=== PATIENT | female | born 1935 | race African-American/Black ===

== ENCOUNTER 2018-10-30 10:36 | Emergency (ER) | payer BC, OTHER ==
[2018-10-30 10:59] VITALS: BP 131/60; PULSE 97; TEMP 98.4; BMI 25.9
[2018-10-30] MEDS ORDERED: IBUPROFEN 600 MG TABLET (FP) PO ONE ×2 (12:08→12:10)
--- NOTE | 2018-10-30 12:12 | PDOC ---
History of Present Illness - General Chief Complaint: Ear Problem Stated Complaint: LT ARM PAIN Time Seen by Provider: 10/30/18 11:43 History Source: Patient Exam Limitations: No Limitations - History of Present Illness Initial Comments: 10/30/18 18:45 Pt is an 83 y/o F with PMH of HTN who presents to the ED with L ear pain and L arm pain. Pt states that when she touches her L ear, she experiences pain. Denies sore throat and hearing changes. She also states that it hurts to flex her L arm and that she has pain in the bicep. Denies trauma or falling. Past History - Travel Traveled outside of the country in the last 30 days: No Close contact w/someone who was outside of country & ill: No - Past Medical History Allergies/Adverse Reactions: Allergies Allergy/AdvReac Type Severity Reaction Status Date / Time No Known Allergies Allergy Verified 10/30/18 10:55 Home Medications: Ambulatory Orders Ciprofloxacin HCl/Dexameth [Ciprodex Otic Suspension] 4 drop BID #1 bottle Ibuprofen 600 mg PO Q8H #30 tablet 10/30/18 Lidocaine 4% Topical [Xylocaine 4% Topical -] 1 applic MM BID #1 btl 10/30/18 COPD: No HTN: Yes - Suicide/Smoking/Psychosocial Hx Smoking History: Never smoked Hx Alcohol Use: No Drug/Substance Use Hx: No Review of Systems - Review of Systems Able to Perform ROS?: Yes Comments:: 10/30/18 12:09 CONSTITUTIONAL: Absent: fever, chills, diaphoresis, generalized weakness, malaise, loss of appetite HEENT: Present: L ear pain Absent: rhinorrhea, nasal congestion, throat pain, throat swelling, difficulty swallowing, mouth swelling, eye pain, visual Changes CARDIOVASCULAR: Absent: chest pain, loss of consciousness, palpitations, irregular heart rate, peripheral edema RESPIRATORY: Absent: cough, shortness of breath, dyspnea with exertion, orthopnea, wheezing, stridor, hemoptysis GASTROINTESTINAL: Absent: abdominal pain, abdominal distension, nausea, vomiting, diarrhea, constipation, melena, hematochezia GENITOURINARY: Absent: dysuria, frequency, urgency, hesitancy, hematuria, flank pain, genital pain MUSCULOSKELETAL: Present: L arm pain Absent: myalgia, arthralgia, joint swelling SKIN: Absent: rash, itching, pallor HEMATOLOGIC/IMMUNOLOGIC: Absent: easy bleeding, easy bruising, lymphadenopathy, frequent infections ENDOCRINE: Absent: unexplained weight gain, unexplained weight loss, heat intolerance, cold intolerance NEUROLOGIC: Absent: headache, focal weakness or paresthesias, dizziness, unsteady gait, seizure, mental status changes, bladder or bowel incontinence PSYCHIATRIC: Absent: anxiety, depression, suicidal or homicidal ideation, hallucinations. Is the patient limited [place]ian proficient: No *Physical Exam - Vital Signs Last Vital Signs Temp Pulse Resp BP Pulse Ox 98.4 F 97 H 16 131/60 99 10/30/18 10:57 10/30/18 10:57 10/30/18 10:57 10/30/18 10:57 10/30/18 10:57 - Physical Exam Comments: 10/30/18 12:09 GENERAL: Well developed, well nourished. Awake and alert. No acute distress. HEENT: Normocephalic, atraumatic. PERRLA, EOMI. No conjunctival pallor. Sclera are non- icteric. Moist mucous membranes. Oropharynx is clear. TTP of the L tragus with swelling to the L ear canal. L TM is normal. No TTP of the mastoid bone. R TM is normal MUSCULOSKELETAL TTP of the L bicep and L bicep insertion at the shoulder. (+) speeds test. Normal range of motion at all joints. No bony deformities or tenderness. No CVA tenderness. EXTREMITIES: No cyanosis. No clubbing. No edema. No calf tenderness. SKIN: Warm and dry. Normal capillary refill. No rashes. No jaundice. NEUROLOGICAL: Alert, awake, appropriate. Cranial nerves 2-12 intact. No deficits to light touch and temperature in face, upper extremities and lower extremities. No motor deficits in the in face, upper extremities and lower extremities. Normoreflexic in the upper and lower extremities. Normal speech. Toes are down- going bilaterally. Gait is normal without ataxia. PSYCHIATRIC: Cooperative. Good eye contact. Appropriate mood and affect. Moderate Sedation - Procedure Monitoring Vital Signs: Procedure Monitoring Vital Signs Temperature 98.4 F 10/30/18 10:57 Pulse Rate 97 H 10/30/18 10:57 Respiratory Rate 16 10/30/18 10:57 Blood Pressure 131/60 10/30/18 10:57 O2 Sat by Pulse Oximetry (%) 99 10/30/18 10:57 Medical Decision Making - Medical Decision Making 10/30/18 18:48 Pt presents to the ED for L arm pain and L ear pain for 2-3 days -Exam consistent with L otitis externa. TM visualized with no evidence of AOM -L arm exam consistent with biceps tendonitis -Will treat with antibiotics for the AOE and sympomatically for the biceps tendonitis -DC home with ortho follow up -I discussed the physical exam findings, ancillary test results and final diagnoses with the patient. I answered all of the patient's questions. The patient was satisfied with the care received and felt comfortable with the discharge plan and treatment plan. The Patient agrees to follow up with the primary care physician/specialist within 24-72 hours. Return precautions were given. *DC/Admit/Observation/Transfer Diagnosis at time of Disposition: Biceps tendinitis of left shoulder Otitis externa Qualifiers: Otitis externa type: unspecified type Chronicity: acute Laterality: left Qualified Code(s): H60.502 - Unspecified acute noninfective otitis externa, left ear - Discharge Dispostion Disposition: HOME Condition at time of disposition: Stable Decision to Admit order: No - Prescriptions Prescriptions: Ciprofloxacin HCl/Dexameth [Ciprodex Otic Suspension] 4 drop BID #1 bottle Ibuprofen 600 mg PO Q8H #30 tablet Lidocaine 4% Topical [Xylocaine 4% Topical -] 1 applic MM BID #1 btl - Referrals Referrals: Pritesh Lizama [Primary Care Provider] - Capo Boland MD [Staff Physician] - - Patient Instructions Printed Discharge Instructions: DI for Otitis Externa, DI for Shoulder Tendinopathy Additional Instructions: You have otitis externa. This is an infection of the ear canal. Please use the eardrops once a day as directed for the next 10 days to the affected ear. Do not put anything in the ear, including q-tips. Keep the ear dry. Do not go swimming for the next 2 weeks. Pat the ear dry with a towel after showering. Follow up with ENT if your symptoms are not improving in 7-10 days You also have biceps tendonitis in your L arm. Take the ibuprofen 600mg every 8 hours for one week. Use the lidocaine cream on the arm twice a day Follow up with your primary care doctor this week Return to the ED if you have worsening pain, fevers, dizziness or if you have any changes in your symptoms. - Post Discharge Activity
== END 2018-10-30 12:14 | disposition home or self-care (01) ==
LOC: JERFT 10:36
DX: H60.502 Unspecified acute noninfective otitis externa, left ear (principal); M75.22 Bicipital tendinitis, left shoulder; I10 Essential (primary) hypertension
CPT/HCPCS: 99281-25

== ENCOUNTER 2020-12-20 09:43 | Inpatient (IN) | payer BC, OTHER ==
[2020-12-20 09:50] VITALS: BMI 25.6
[2020-12-20 11:06] LABS: BASO % 0.5 % (0-2.0); EOS % 1.3 % (0-4.5); HEMATOCRIT 39.3 % (32.4-45.2); LYMPH % 49.7 % (8-40); MCH 32.3 pg (25.7-33.7); MCHC 33.1 g/dl (32.0-36.0); MEAN CELL VOLUME 97.6 fl (80-96); MEAN PLT VOLUME 9.2 fl (7.5-11.1); MONO % 5.9 % (3.8-10.2); NEUT % 42.6 % (42.8-82.8); PLATELET COUNT 141 K/MM3 (134-434); RBC 4.03 M/mm3 (3.60-5.2); RDW 13.1 % (11.6-15.6); WHITE BLOOD COUNT 4.7 K/mm3 (4.0-10.0)
[2020-12-20 11:23] LABS: CHLORIDE 105 mmol/L (98-107); SODIUM 139 mmol/L (136-145)
[2020-12-20 11:26] LABS: CALCIUM 9.5 mg/dL (8.5-10.1)
[2020-12-20 11:27] LABS: ANION GAP 3 MMOL/L (8-16); BLOOD UREA NITROGEN 18.4 mg/dL (7-18); CO2 31 mmol/L (21-32); MAGNESIUM 2.2 mg/dL (1.8-2.4)
[2020-12-20 11:29] LABS: GLUCOSE,RANDOM 96 mg/dL (74-106)
[2020-12-20 11:30] LABS: CREATININE 1.1 mg/dL (0.55-1.3); PHOSPHOROUS 3.2 mg/dL (2.5-4.9); SGOT/AST 14 U/L (15-37); SGPT/ALT 18 U/L (13-61)
[2020-12-20 11:32] LABS: BILIRUBIN,TOTAL 0.4 mg/dL (0.2-1); TOT PROT 7.8 g/dl (6.4-8.2)
[2020-12-20 11:33] LABS: ALK PHOS 82 U/L (45-117)
[2020-12-20] MEDS ORDERED: ONDANSETRON 4 MG/2 ML VIAL IVPUSH PRN (19:25)
[2020-12-20] MEDS ORDERED: ACETAMINOPHEN 325 MG TABLET (FP) PO PRN (19:25)
[2020-12-20] MEDS ORDERED: HEPARIN NA (PORCINE) 5,000 UNITS/ML 1ML VIAL ONE (20:52)
[2020-12-20] MEDS: HEPARIN NA (PORCINE) 5,000 UNITS/ML 1ML VIAL SQ SCH (20:59)
[2020-12-21 07:43] LABS: HEMATOCRIT 36.3 % (32.4-45.2); HEMOGLOBIN 12.4 GM/dL (10.7-15.3); MCH 33.3 pg (25.7-33.7); MCHC 34.2 g/dl (32.0-36.0); MEAN CELL VOLUME 97.3 fl (80-96); MEAN PLT VOLUME 8.9 fl (7.5-11.1); PLATELET COUNT 132 K/MM3 (134-434); RBC 3.73 M/mm3 (3.60-5.2); WHITE BLOOD COUNT 4.9 K/mm3 (4.0-10.0)
[2020-12-21 08:04] LABS: BLOOD UREA NITROGEN 14.4 mg/dL (7-18); CALCIUM 9.2 mg/dL (8.5-10.1)
[2020-12-21 08:06] LABS: CREATININE 1.1 mg/dL (0.55-1.3)
[2020-12-21] MEDS ORDERED: HEPARIN NA (PORCINE) 5,000 UNITS/ML 1ML VIAL ONE (09:21)
[2020-12-21] MEDS ORDERED: PT OWN MED DRAWER 7, Y5N ONE (09:21)
[2020-12-21] MEDS: HEPARIN NA (PORCINE) 5,000 UNITS/ML 1ML VIAL SQ SCH ×2 (09:26→23:15)
[2020-12-22 09:19] LABS: BASO % 0.9 % (0-2.0); EOS % 1.6 % (0-4.5); HEMATOCRIT 35.2 % (32.4-45.2); HEMOGLOBIN 11.9 GM/dL (10.7-15.3); LYMPH % 56.4 % (8-40); MCH 32.8 pg (25.7-33.7); MCHC 33.8 g/dl (32.0-36.0); MEAN PLT VOLUME 9.4 fl (7.5-11.1); MONO % 7.1 % (3.8-10.2); PLATELET COUNT 127 K/MM3 (134-434); RBC 3.63 M/mm3 (3.60-5.2); RDW 12.7 % (11.6-15.6); WHITE BLOOD COUNT 5.1 K/mm3 (4.0-10.0)
[2020-12-22 10:01] LABS: ALBUMIN 3.3 g/dl (3.4-5.0); BLOOD UREA NITROGEN 21.7 mg/dL (7-18)
[2020-12-22 10:04] LABS: CREATININE 1.1 mg/dL (0.55-1.3)
[2020-12-22 10:05] LABS: BILIRUBIN,TOTAL 0.8 mg/dL (0.2-1); TOT PROT 6.7 g/dl (6.4-8.2)
[2020-12-22] MEDS: HEPARIN NA (PORCINE) 5,000 UNITS/ML 1ML VIAL SQ SCH (10:12)
[2020-12-22] MEDS ORDERED: ASPIRIN COATED 81 MG TABLET.EC PO SCH (13:45)
[2020-12-22 14:51] VITALS: BP 125/98; PULSE 76; TEMP 98
[2020-12-22] MEDS ORDERED: ATORVASTATIN CA 10 MG TABLET (FP) PO SCH (22:00)
[2020-12-23] MEDS ORDERED: amLODIPine BESYLATE 5 MG TABLET (FP) PO SCH (10:00)
[2020-12-23] MEDS ORDERED: HYDROCHLOROTHIAZIDE 25 MG TABLET (FP) PO SCH (10:00)
== END 2020-12-22 17:30 | disposition home or self-care (01) | DRG 312 ==
LOC: JERFT 09:43 → JERBED 13:32 → OBSVTOIN 19:25 → J6WEST-2 12-21 22:55
PROVIDERS: ADMIT Internal Medicine; ATTEND Student in an Organized Health Care Education/Training Program
DX: R55 Syncope and collapse (principal); S22.31XA Fracture of one rib, right side, initial encounter for closed fracture; I10 Essential (primary) hypertension; E78.5 Hyperlipidemia, unspecified; W19.XXXA Unspecified fall, initial encounter; Y93.H2 Activity, gardening and landscaping; Y92.89 Other specified places as the place of occurrence of the external cause; Y99.8 Other external cause status
CPT/HCPCS: 36415; 70450-TC; 70486-TC; 71250-TC; 80048; 80053; 80061; 82550; 82607; 82747; 82962; 83036; 83721; 83735; 83880; 84100; 84443; 84484; 85014; 85025; 85027; 86593; 86780; 93005; 93010; 93306-TC; 93880-TC; 99285-25; C9803; G0378; J1644; U0003; U0005

== ENCOUNTER 2020-12-29 12:13 | Observation (INO) | payer BC ==
[2020-12-29 12:23] VITALS: BMI 25.6
[2020-12-29 14:38] LABS: BASO % 0.4 % (0-2.0); EOS % 0.4 % (0-4.5); HEMATOCRIT 37.6 % (32.4-45.2); HEMOGLOBIN 12.7 GM/dL (10.7-15.3); LYMPH % 22.1 % (8-40); MCH 32.6 pg (25.7-33.7); MCHC 33.7 g/dl (32.0-36.0); MEAN CELL VOLUME 96.8 fl (80-96); MEAN PLT VOLUME 8.9 fl (7.5-11.1); MONO % 4.7 % (3.8-10.2); NEUT % 72.4 % (42.8-82.8); PLATELET COUNT 126 K/MM3 (134-434); RBC 3.88 M/mm3 (3.60-5.2); WHITE BLOOD COUNT 6.2 K/mm3 (4.0-10.0)
[2020-12-29 15:05] LABS: CHLORIDE 101 mmol/L (98-107); SODIUM 139 mmol/L (136-145)
[2020-12-29 15:08] LABS: CALCIUM 9.8 mg/dL (8.5-10.1)
[2020-12-29 15:09] LABS: ALBUMIN 3.9 g/dl (3.4-5.0); ANION GAP 5 MMOL/L (8-16); BLOOD UREA NITROGEN 19.3 mg/dL (7-18); CO2 32 mmol/L (21-32); GLUCOSE,RANDOM 123 mg/dL (74-106); MAGNESIUM 2.3 mg/dL (1.8-2.4)
[2020-12-29 15:12] LABS: CREATININE 1.4 mg/dL (0.55-1.3); SGOT/AST 23 U/L (15-37); SGPT/ALT 25 U/L (13-61)
[2020-12-29 15:13] LABS: BILIRUBIN,TOTAL 0.6 mg/dL (0.2-1); TOT PROT 7.7 g/dl (6.4-8.2)
[2020-12-29 15:15] LABS: ALK PHOS 86 U/L (45-117)
[2020-12-29] MEDS ORDERED: LACTATED RINGERS SOLUTION 1000 ML INFUS.BAG IV ONE (16:36)
[2020-12-29] MEDS ORDERED: ONDANSETRON 4 MG/2 ML VIAL IVPUSH ONE (16:41)
[2020-12-29] MEDS ORDERED: SODIUM CHLORIDE 1,000 ML IV SCH (22:30)
[2020-12-30 08:07] LABS: BASO % 0.5 % (0-2.0); EOS % 1.4 % (0-4.5); HEMATOCRIT 33.7 % (32.4-45.2); HEMOGLOBIN 11.2 GM/dL (10.7-15.3); LYMPH % 45.5 % (8-40); MCH 32.3 pg (25.7-33.7); MCHC 33.3 g/dl (32.0-36.0); MEAN CELL VOLUME 97.2 fl (80-96); MEAN PLT VOLUME 9.3 fl (7.5-11.1); MONO % 6.6 % (3.8-10.2); PLATELET COUNT 122 K/MM3 (134-434); RBC 3.47 M/mm3 (3.60-5.2); RDW 13.1 % (11.6-15.6)
[2020-12-30 08:30] LABS: BLOOD UREA NITROGEN 18.4 mg/dL (7-18); CALCIUM 9.4 mg/dL (8.5-10.1); MAGNESIUM 2.2 mg/dL (1.8-2.4)
[2020-12-30 08:33] LABS: CREATININE 1.1 mg/dL (0.55-1.3)
[2020-12-30 08:35] LABS: BILIRUBIN,TOTAL 0.4 mg/dL (0.2-1); PHOSPHOROUS 3.4 mg/dL (2.5-4.9); TOT PROT 6.4 g/dl (6.4-8.2)
[2020-12-30 08:47] LABS: ALBUMIN 3.1 g/dl (3.4-5.0)
[2020-12-30] MEDS: amLODIPine BESYLATE 5 MG TABLET (FP) PO SCH (09:20)
[2020-12-30] MEDS: ENOXAPARIN NA (PORCINE) 40 MG/0.4 ML DISP.SYRIN SQ SCH (09:21)
[2020-12-30] MEDS ORDERED: ACETAMINOPHEN 325 MG TABLET (FP) PO PRN (15:06)
[2020-12-30 19:18] LABS: EPI CELLS 2 /uL (0-25.1); HYALINE CASTS 0 /uL (0-3.1); PH,URINE 7.5 (5.0-8.0); URINE APPEARANCE CLEAR; URINE BACTERIA 13 /uL (0-1359); URINE BILIRUBIN NEGATIVE (NEGATIVE); URINE COLOR YELLOW; URINE GLUCOSE (UA) NEGATIVE (NEGATIVE); URINE KETONE NEGATIVE (NEGATIVE); URINE LEUK ESTERASE TRACE (NEGATIVE); URINE NITRITE NEGATIVE (NEGATIVE); URINE PROTEIN NEGATIVE (NEGATIVE); URINE RBC 10 /uL (0-23.9); URINE UROBILINOGEN 0.2 mg/dL (0.2-1.0); URINE WBC 6 /uL (0-25.8)
[2020-12-30] MEDS ORDERED: ATORVASTATIN CA 10 MG TABLET (FP) PO SCH (22:00)
[2020-12-31 07:26] LABS: HEMATOCRIT 32.9 % (32.4-45.2); HEMOGLOBIN 11.1 GM/dL (10.7-15.3); MCH 32.8 pg (25.7-33.7); MCHC 33.7 g/dl (32.0-36.0); MEAN CELL VOLUME 97.4 fl (80-96); PLATELET COUNT 108 K/MM3 (134-434); RBC 3.37 M/mm3 (3.60-5.2); WHITE BLOOD COUNT 4.9 K/mm3 (4.0-10.0)
[2020-12-31 07:56] LABS: CALCIUM 8.4 mg/dL (8.5-10.1)
[2020-12-31 07:57] LABS: BLOOD UREA NITROGEN 18.7 mg/dL (7-18); MAGNESIUM 1.9 mg/dL (1.8-2.4)
[2020-12-31 07:59] LABS: PHOSPHOROUS 3.3 mg/dL (2.5-4.9)
[2020-12-31] MEDS: amLODIPine BESYLATE 5 MG TABLET (FP) PO SCH (09:30)
[2020-12-31] MEDS: ENOXAPARIN NA (PORCINE) 40 MG/0.4 ML DISP.SYRIN SQ SCH (09:30)
[2020-12-31] MEDS ORDERED: FAMOTIDINE 20 MG TABLET PO ONE (09:33)
[2020-12-31 14:21] VITALS: BP 130/56; PULSE 66; TEMP 98
== END 2020-12-31 16:30 | disposition home or self-care (01) ==
LOC: JER 12:13 → JERBED 18:16 → UNDOADMOB 18:16 → J4S 21:28 → JERBED 21:28 → INTOOBSV 22:22 → OBSVTOIN 22:22 → J4S 23:11 → JERBED 12-30 13:58
PROVIDERS: ADMIT Internal Medicine; ATTEND Internal Medicine
PROC: 3E023GC Introduction of Other Therapeutic Substance into Muscle, Percutaneous Approach (ICD-10-PCS; principal; 2020-12-30)
PROC: 3E0337Z Introduction of Electrolytic and Water Balance Substance into Peripheral Vein, Percutaneous Approach (ICD-10-PCS; 2020-12-30)
PROC: 3E033GC Introduction of Other Therapeutic Substance into Peripheral Vein, Percutaneous Approach (ICD-10-PCS; 2020-12-30)
DX: R55 Syncope and collapse (principal); N17.9 Acute kidney failure, unspecified; E78.5 Hyperlipidemia, unspecified; I10 Essential (primary) hypertension; W18.39XA Other fall on same level, initial encounter; Y93.H2 Activity, gardening and landscaping; Y92.096 Garden or yard of other non-institutional residence as the place of occurrence of the external cause; R11.2 Nausea with vomiting, unspecified; R53.1 Weakness; Z86.19 Personal history of other infectious and parasitic diseases; Z29.9 Encounter for prophylactic measures, unspecified
CPT/HCPCS: 36415; 70551-TC; 71046-TC-FY; 80048; 80053; 81003; 83735; 84100; 84484; 85025; 85027; 93005; 93010; 96361; 96372; 96374; 97116-GP; 97161-GP; 99285-25; C9803; G0378; U0003; U0005